=== PATIENT | male | born 1990 | race African-American/Black ===

== ENCOUNTER 2016-08-31 23:33 | Emergency (ER) | payer OTHER ==
[~2016-08-31] VITALS: Ht 175.3 cm; Wt 72.0 kg
[2016-08-31 23:33] VITALS: Ht 175.3 cm; Wt 72.0 kg
--- NOTE | 2016-09-01 01:53 | ERD ---
ER Documentation Chief Complaint Date/Time DATE: 09/01/16 TIME: 01:47 Chief Complaint hand puncture wound right palm s/p punctured on metal fence HPI 26-year-old male presents here in emergency department for complaints of right palm puncture wound after accidentally hitting it in a metal fence today. Patient described pain as sharp pain, 6/10 scale, is worse upon touching the area. Patient is able to move the hand without any difficulty. Last tetanus immunization was less than 5 years. Patient denies any numbness or tingling. Patient denies any foreign body. ROS All systems reviewed and are negative except as per history of present illness. Medications Home Meds Active Scripts Cephalexin* (Keflex*) 500 Mg Capsule, 500 MG PO QID for 5 Days, CAP Prov:MARCI MADERA FORM TAMPER OPERATOR 09/01/16 Ibuprofen* (Motrin*) 600 Mg Tab, 600 MG PO Q6H Y for PAIN AND OR ELEVATED TEMP, #30 TAB Prov:MARCI MADERA NP 09/01/16 Reported Medications [none] Unknown Strength No Conflict Check 09/01/16 Allergies Allergies: Coded Allergies: No Known Drug Allergies (Verified Allergy, Unknown, 09/01/16) PMhx/Soc Medical and Surgical Hx: pt denies Medical Hx, pt denies Surgical Hx Hx Alcohol Use: No Hx Substance Use: No Hx Tobacco Use: Yes Smoking Status: Current every day smoker FmHx Family History: No coronary disease, No diabetes, No other Physical Exam Vitals Vital Signs Date Time Temp Pulse Resp B/P Pulse Ox O2 Delivery O2 Flow Rate FiO2 08/31/16 23:46 98.2 70 20 113/66 100 Room Air 08/31/16 23:33 98.2 70 18 113/66 100 Physical Exam GENERAL: The patient is well developed and appropriate for usual state of health, in no apparent distress. CHEST: Clear to auscultation bilaterally. There are no rales, wheezes or rhonchi. HEART: Regular rate and rhythm. No murmurs, clicks, rubs or gallops. No S3 or S4. ABDOMEN: Soft, nontender and nondistended. Good bowel sounds. No rebound or guarding. No gross peritonitis. No gross organomegaly or masses. No Gtz sign or McBurney point tenderness. BACK: No midline or flank tenderness. EXTREMITIES: Equal pulses bilaterally. There is no peripheral clubbing, cyanosis or edema. No focal swelling or erythema. Full range of motion. Grossly neurovascularly intact. NEURO: Alert and oriented. Cranial nerves 2-12 intact. Motor strength in all 4 extremities with 5/5 strength. Sensation grossly intact. Normal speech and gait. SKIN: Puncture wound noted in the palmar aspect of the right hand. No deformity noted. There is no apparent rash or petechia. The skin is warm and dry. HEMATOLOGIC AND LYMPHATIC: There is no evidence of excessive bruising or lymphedema. No gross cervical, axillary, or inguinal lymphadenopathy. Results 24 hrs PROCEDURE: X-ray right hand CLINICAL INDICATION: Right hand injury TECHNIQUE: 3 views right hand COMPARISON: None FINDINGS: No acute fracture or dislocation. Soft tissues unremarkable. IMPRESSION: No acute fracture. RPTAT: [facility] Physician Lorri Date Time Electronically viewed and signed by Physician Lorri on 09/01/2016 01:59 RS/ CC: MARCI MADERA FORM TAMPER OPERATOR Procedures/MDM Medical Decision Making: Patient's pain is most likely consistent with a contusion and the puncture wound noted on affected area, no foreign body. There is no suspicion for neurovascular compromise. Patient has intact sensation and circulation of the affected extremity. There is low suspicion for septic arthritis. Patient does not have any fever. Radiology exams of the affected area does not show any fracture or dislocation. Disposition: Home. Patient is given prescription for ibuprofen for pain and Keflex to prevent infection. Patient was advised to elevate the affected area and apply ice on affected area. Patient was advised that if symptoms are worse , numbness, tingling, high fever, unable to move joint, worsening symptoms, to return to emergency department immediately. Otherwise, patient is advised to follow up with the primary care doctor in 5-7 days for reevaluation of symptoms. Patient is accompanied by police officers, patient is cleared to be taken by the police department. Departure Diagnosis: Primary Impression: Hand contusion Encounter type: initial encounter Laterality: right Qualified Code: S60.221A - Contusion of right hand, initial encounter Additional Impression: Puncture wound Condition: Stable Patient Instructions: Contusion, Hand, Puncture Wound, General Additional Instructions: Patient is given prescription for ibuprofen for pain. Patient was advised to elevate the affected area and apply ice on affected area. Patient was advised that if symptoms are worse, numbness, tingling, high fever, unable to move joint , worsening symptoms, to return to emergency department immediately. Otherwise, patient is advised to follow up with the primary care doctor in 5-7 days for reevaluation of symptoms. MARCI MADERA NP Sep 01, 2016 01:53
--- NOTE | 2016-09-01 01:59 | RADRPT ---
PROCEDURE: X-ray right hand CLINICAL INDICATION: Right hand injury TECHNIQUE: 3 views right hand COMPARISON: None FINDINGS: No acute fracture or dislocation. Soft tissues unremarkable. IMPRESSION: No acute fracture. RPTAT: [facility] Physician Lorri Date Time Electronically viewed and signed by Josafat Robbins Physician on 09/01/2016 01:59 RS/
[2016-09-01] MEDS ORDERED: CEPH-443 PO (02:08)
[2016-09-01] MEDS ORDERED: IBUP-1542 PO (02:08)
[2016-09-01 02:20] VITALS: BP 115/62; PULSE 68; RESP 16; TEMP 98.4
== END 2016-09-01 02:21 ==
LOC: E/R 23:33 → FTE 09-01 02:21
DX: S60.221A Contusion of right hand, initial encounter (principal); F17.210 Nicotine dependence, cigarettes, uncomplicated; W22.8XXA Striking against or struck by other objects, initial encounter; Y92.9 Unspecified place or not applicable